=== PATIENT | female | born 1970 | race Caucasian/White ===

== ENCOUNTER 2022-10-22 12:20 | Emergency (ER) | payer OTHER ==
[~2022-10-22] VITALS: Ht 167.6 cm; Wt 105.0 kg
[2022-10-22 14:40] LABS: Eosinophils # (auto) 0 10 ^3/uL (0-0.8); Eosinophils % (auto) 0.1 % (0.0-7.0); Monocytes # (auto) 0.3 10 ^3/uL (0-1.3)
[2022-10-22 14:41] LABS: Basophils # (auto) 0.1 10 ^3/uL (0-0.2); Hematocrit 36.1 % (36.0-46.0); Lymphocytes % (auto) 7.8 % (10.0-50.0); Mean Corpuscular Hgb Conc. 33.2 g/dL (32.0-36.0); Mean Corpuscular Volume 81.3 fL (80.0-100.0); Monocytes % (auto) 1.9 % (0.0-12.0); Neutrophils # (auto) 11.9 10 ^3/uL (1.6-8.6); Neutrophils % (auto) 89.2 % (37.0-80.0); Red Blood Cells 4.45 10^6/uL (4.0-5.20); Red Cell Distribution Width 16.6 % (11.8-14.3); White Blood Cell 13.3 10^3/uL (4.4-10.8)
[2022-10-22 15:01] LABS: Alanine Aminotransferase 10 U/L (7-40); Alkaline Phosphatase 88 U/L (46-116); Anion Gap 8.7 (5-15); Aspartate Aminotransferase 11 U/L (13-40); BUN/Creatinine Ratio 15.1 (10.0-20.0); Blood Urea Nitrogen 11 mg/dL (9-23); Calcium 9.4 mg/dL (8.7-10.4); Carbon Dioxide 22.3 mmol/L (20-30); Chloride 107 mmol/L (98-107); Glucose 117 mg/dL (74-106); Lipase 28 U/L (12-53); Sodium 138 mmol/L (136-145)
[2022-10-22 15:02] LABS: Albumin 4.5 g/dL (3.2-4.8); Bilirubin, Total 0.6 mg/dL (0.2-1.0); Total Protein 7.4 g/dL (5.7-8.2)
[2022-10-22] MEDS ORDERED: ONDANSETRON HCL 4 MG/2 ML VIAL IV ONE (15:30)
[2022-10-22] MEDS ORDERED: SODIUM CHLORIDE 0.9% 1,000 ML IV ONE (15:30)
[2022-10-22] MEDS ORDERED: fentaNYL CITRATE 100 MCG/2 ML VL IV ONE ×2 (15:30→18:45)
[2022-10-22] MEDS ORDERED: PIPERACILLIN-TAZOB 3.375GM 100 ML IV ONE (16:00)
[2022-10-22 16:30] VITALS: PULSE 65; RESP 18; O2SAT 98
[2022-10-22 19:48] LABS: Urine Amorphous Crystal FEW /hpf (None Seen); Urine Bacteria NONE SEEN /hpf (None Seen); Urine Blood 1+ /uL (Negative); Urine Clarity CLOUDY (Clear); Urine Color Yellow (Yellow); Urine Mucus FEW (None Seen); Urine Protein, UAD TRACE (Negative); Urine Specific Gravity 1.026 (1.001-1.035); Urine Urobilinogen Normal (Negative); Urine WBC 21 /hpf (0 - 5); Urine pH 5.5 (5.0-8.0)
[2022-10-22 20:35] VITALS: BP 154/80; TEMP 98.4
[2022-10-22 20:40] VITALS: PULSE 74; RESP 16; O2SAT 100
== END 2022-10-22 20:45 | disposition short-term general hospital (02) ==
LOC: EDBD 12:20 → ER 12:20
DX: K81.0 Acute cholecystitis (principal); R10.2 Pelvic and perineal pain; Z98.890 Other specified postprocedural states
CPT/HCPCS: 36415; 74176; 76705; 80053; 81001; 83605; 83690; 84484; 84702; 85025; 96365; 96366; 96375; 96376; 99285; J2405; J2543; J3010; J7030; 93005